=== PATIENT | female | born 1980 | race Caucasian/White ===

== ENCOUNTER 2021-04-15 13:34 | Emergency (ER) | payer OTHER ==
[2021-04-15 15:00] LABS: BASOPHIL 0.2 % (0-2); EOSINOPHIL 4.3 % (0-5); HCT 30.1 % (37.0-47.0); HGB 9.5 g/dl (12.5-16.0); LYMPHOCYTE 29.6 % (15-48); MCH 25.1 pg (25.0-31.0); MCHC 31.6 g/dL (32.0-36.0); MCV 79.6 fL (78.0-100.0); MONOCYTE 9.6 % (0-12); NRBC 0; PLT 280 K/uL (150-400); RBC 3.78 M/uL (4.20-5.40); RDW 20.9 % (11.5-14.0); WBC 6.1 K/uL (4.0-10.5)
[2021-04-15 15:34] LABS: BILIRUBIN NEGATIVE (NEGATIVE); BLOOD NEGATIVE Ery/uL (NEGATIVE); CLARITY HAZY (CLEAR); COLOR YELLOW (YELLOW); GLUCOSE (U) NORMAL (NORMAL); LEUKOCYTES TRACE Leu/uL (NEGATIVE); NITRITE NEGATIVE (NEGATIVE); PROTEIN TRACE (LOW) mg/dL (NEGATIVE)
[2021-04-15 15:39] LABS: AMPHETAMINES NEGATIVE (NEGATIVE); BARBITURATES NEGATIVE (NEGATIVE); ECSTASY (MDMA) NEGATIVE (NEGATIVE); MARIJUANA (THC) POSITIVE (NEGATIVE); METHADONE NEGATIVE (NEGATIVE); OPIATES NEGATIVE (NEGATIVE); OXYCODONE NEGATIVE (NEGATIVE)
[2021-04-15 15:47] LABS: BACTERIA 1+; URINARY RBC RARE
[2021-04-15 16:01] LABS: ALBUMIN 3.1 g/dL (3.4-5.0); ALKALINE PHOSHATASE 81 U/L (46-116); ALT 35 U/L (14-59); AMYLASE 19 U/L (25-115); AST 64 U/L (15-37); BILIRUBIN - TOTAL 0.2 mg/dL (0.2-1.0); BUN 7 mg/dL (7-18); BUN/CREAT RATIO (CALC) 4.9 RATIO; CHLORIDE 98 mmol/L (98-107); CO2 (BICARBONATE) 22 mmol/L (21-32); CREATININE 1.42 mg/dL (0.51-0.95); GLOBULIN (CALCULATION) 4.2 g/dL; GLUCOSE 109 mg/dL (74-106); LIPASE 54 U/L (73-393); POTASSIUM 3.6 mmol/L (3.5-5.1); TOTAL PROTEIN 7.3 g/dL (6.4-8.2)
== END 2021-04-15 17:55 | disposition home or self-care (01) ==
LOC: FER 13:34
PROVIDERS: Nurse Practitioner Family
DX: S90.32XA Contusion of left foot, initial encounter (principal); F19.90 Other psychoactive substance use, unspecified, uncomplicated; R42 Dizziness and giddiness; R41.82 Altered mental status, unspecified; E11.9 Type 2 diabetes mellitus without complications; Z88.0 Allergy status to penicillin; Z88.2 Allergy status to sulfonamides; Z88.8 Allergy status to other drugs, medicaments and biological substances; W01.0XXA Fall on same level from slipping, tripping and stumbling without subsequent striking against object, initial encounter
CPT/HCPCS: 36415; 70450; 73630; 80053; 80305; 81001; 82150; 83690; 85025; G0480; J7030